=== PATIENT | male | born 1970 | race African-American/Black ===

== ENCOUNTER → 2019-04-29 | Outpatient (CLI) | payer OTHER ==
[~2019-04-29] MED LIST: AMBIEN 10 MG TA10 MG PO; AVELOX 400 MG400 MG PO; CARISOPRODOL PO; CLARITIN10 M2; COLCHICINE 0.60.6 M1 PO; CYCLOBENZAPRINE10 MG; DOLOPHINE HCL5 MG PO; DOXYCYCLINE 10100 M1 PO; FLONASE; LANTUS SC; LIDOCAINE VISC100 M1 PO; LORTAB 5 MG/5001 TA1 PO; MS CONTIN 60 MG60 M1 PO; NAPROSYN500 MG PO; NEXIUM20 M1 PO; OXYCODONE HCL15 MG PO; OXYCONTIN20 MG PO; PAXIL30 MG PO; PERCOCET 5-3251 EACH PO; PHENERGAN 25 MG25 M1 PO; PHENERGAN 25 MG25 MG PO; PREDNISONE 10 M10 M1 PO; PREDNISONE50 MG OR; PROTONIX 20 MG20 M1 PO; VICOPROFEN 2001 EACH PO; ZENPEP DR 20,01 EACH PO; ZOFRAN ODT4 MG PO; [UNRECOGNIZED DRUG - OTHER]
== END ==
LOC: CAT 09:32
DX: M16.11 Unilateral primary osteoarthritis, right hip (principal); K40.90 Unilateral inguinal hernia, without obstruction or gangrene, not specified as recurrent; N40.0 Benign prostatic hyperplasia without lower urinary tract symptoms; M25.851 Other specified joint disorders, right hip